=== PATIENT | male | born 1995 | race Caucasian/White ===

== ENCOUNTER 2017-07-30 10:00 | Day surgery (SDC) | payer OTHER ==
[~2017-07-30 10:00] MED LIST: Lactated Ringers 1,000 ML IV SCH; Midazolam 1 MG/ML 2 ML SDV ONE; Ondansetron 4 MG/2 ML SDV ONE; Propofol 200 MG/20 ML SDV ONE; ceFAZolin 2 GM in Premix Bag 1 BAG IV ONE; fentaNYL 100 MCG/2 ML SDV ONE
--- NOTE | 2017-07-30 10:52 | PCM.PREANE ---
Preanesthetic Assessment - Anesthesia/Transfusion/Family Hx Anesthesia History: No Prior Anesthesia Family History of Anesthesia Reaction: No Transfusion History: No Prior Transfusion(s) Intubation History: Unknown - Review of Systems General: No Symptoms Pulmonary: No Symptoms Cardiovascular: No Symptoms Gastrointestinal: No Symptoms Neurological: No Symptoms Other: Reports: None - Physical Assessment O2 Sat by Pulse Oximetry: 98 Respiratory Rate: 16 Vital Signs: Last Vital Signs Temp 36.4 C 07/30/17 10:32 Pulse 61 07/30/17 10:32 Resp 16 07/30/17 10:32 BP 140/71 07/30/17 10:32 Pulse Ox 98 07/30/17 10:32 Height: 1.88 m Weight: 115.666 kg ASA Class: 2 Mental Status: Alert & Oriented x3 Airway Class: Mallampati = 2 Dentition: Reports: Normal Dentition, Broken Tooth/Teeth (small chip x1 upper front (right)) ROM/Head Extension: Full Lungs: Clear to Auscultation, Normal Respiratory Effort Cardiovascular: Regular Rate, Regular Rhythm - Allergies Allergies/Adverse Reactions: Allergies Allergy/AdvReac Type Severity Reaction Status Date / Time No Known Allergies Allergy Verified 07/26/17 14:11 - Blood Blood Available: No - Anesthesia Plan Pre-Op Medication Ordered: None - Acknowledgements Anesthesia Type Planned: General Anesthesia Pt an Appropriate Candidate for the Planned Anesthesia: Yes Alternatives and Risks of Anesthesia Discussed w Pt/Guardian: Yes Pt/Guardian Understands and Agrees with Anesthesia Plan: Yes PreAnesthesia Questionnaire Musculoskeletal History: Reports: Fracture Other Musculoskeletal History: hx of fx clavicle,left foot,hand,arm, elbow, bilateral heels, leg...no hardware Neurological History: Reports: Concussion Psychiatric History: Reports: Depression Other Psychiatric History: has been prescribed medications for depression but he never takes them Endocrine/Metabolic History: Reports: Obesity/BMI 30+ - SUBSTANCE USE Smoking Status *Q: Current Every Day Smoker (1/2 ppd) Tobacco Use Within Last Twelve Months: Cigarettes Recreational Drug Use History: No - HOME MEDS Home Medications: Home Meds . [No Known Home Meds] 07/26/17 [History] - CURRENT (IN HOUSE) MEDS Current Meds: Current Medications Lactated Ringer's (Ringers, Lactated) 1,000 mls @ 999 mls/hr IV .BOLUS JUNE Last Admin: 07/30/17 10:35 Dose: 125 mls/hr Discontinued Medications Fentanyl (Sublimaze) Confirm Administered Dose 200 mcg .ROUTE .STK-MED ONE Stop: 07/30/17 08:37 Cefazolin Sodium/Dextrose 2 gm (/ Premix) 50 mls @ 100 mls/hr IV ONETIME ONE Stop: 07/29/17 18:18 Midazolam HCl (Versed 1 Mg/Ml) Confirm Administered Dose 2 mg .ROUTE .STK-MED ONE Stop: 07/30/17 08:37 Ondansetron HCl (Zofran) Confirm Administered Dose 4 mg .ROUTE .STK-MED ONE Stop: 07/30/17 08:37 Propofol (Diprivan 20 Ml) Confirm Administered Dose 200 mg .ROUTE .STK-MED ONE Stop: 07/30/17 08:37
[2017-07-30] MEDS ORDERED: Bupivacaine 0.5% 30 ML SDV ONE (11:48)
[2017-07-30] MEDS ORDERED: Dexamethasone 4 MG/ML 5 ML MDV ONE (11:56)
[2017-07-30] MEDS ORDERED: diphenhydrAMINE 50 MG/ML SDV ONE (11:56)
[2017-07-30] MEDS ORDERED: HYDROmorphone 2 MG/ML Syringe ONE (12:18)
[2017-07-30] MEDS ORDERED: HYDROmorphone 2 MG/ML Syringe IVPUSH ONE (14:30)
[2017-07-30] MEDS ORDERED: fentaNYL 100 MCG/2 ML SDV IVPUSH PRN (14:30)
[2017-07-30] MEDS ORDERED: Acetaminophen 1,000 MG in Premix Bag 1 BAG IV ONE (15:23)
--- NOTE | 2017-07-30 15:28 | PCM.POSTAN ---
POST ANESTHESIA ASSESSMENT - MENTAL STATUS Mental Status: Alert, Oriented - VITAL SIGNS Pulse Rate: 86 SaO2: 95 (Room Air) Resp Rate: 14 Blood Pressure: 141/73 - RESPIRATORY Respiratory Status: Respiratory Rate WNL, Airway Patent, O2 Saturation Stable - CARDIOVASCULAR CV Status: Pulse Rate WNL, Blood Pressure Stable - GASTROINTESTINAL GI Status: No Symptoms - PAIN Pain Score: 2 (mostly itchy) - POST OP HYDRATION Hydration Status: Adequate & Stable - OBSERVATIONS Free Text/Narrative:: Awake and talking Orienting but responding verbal to verbal warm pink and dry vitals in stable limits says not much paini but mostly i to phase 2 plan non narcotic intervention for pqain if neededtchy discharging from recovery room
--- NOTE | 2017-07-30 16:16 | CR ---
EXAMINATION: Left foot HISTORY: ORIF COMPARISON: 06/21/2017 TECHNIQUE: 5 views FINDINGS/IMPRESSION: Operative control films demonstrate screw and plate fixation of an oblique proxi mal fifth metatarsal fracture.
--- NOTE | 2017-07-30 16:35 | PCM.OPNOTE ---
- General Post-Op/Procedure Note Date of Surgery/Procedure: 07/30/17 Operative Procedure(s): open reduction with internal fixation of fifth metatarsal fracture right foot Findings: consistent with diagnosis Pre Op Diagnosis: fracture of fifth metatarsal right foot Post-Op Diagnosis: fracture of fifth metatarsal right foot Primary Surgeon: Jose Guadalupe Cha Anesthesia Provider: Tressa Conteh Pathology: none EBL in mLs: 10 Condition: Good Free Text/Narrative:: Intake & Output 07/30/17 07/30/17 07/30/17 06:59 14:59 22:59 Intake Total 1800 Balance 1800 injectables: 10 cc 0.5% marcaine plain materials: [place] plate, 4 hole, 28 mm, x1 Sara 3.0 mm non-locking screws, fully threaded, 14 mm x 1, 16 mm x 1 [place] 3.0 mm locking screw, fully threaded, 16 mm x 1, 18 mm x 1 3-0 vicryl 4-0 vicryl 4-0 prolene
--- NOTE | 2017-07-30 16:50 | PCM48HPAN ---
Post Anesthesia Note - EVALUATION WITHIN 48HRS OF ANESTHETIC Vital Signs in Normal Range: Yes Patient Participated in Evaluation: Yes Respiratory Function Stable: Yes Airway Patent: Yes Cardiovascular Function Stable: Yes Hydration Status Stable: Yes Pain Control Satisfactory: Yes Nausea and Vomiting Control Satisfactory: Yes Mental Status Recovered: Yes - COMMENTS/OBSERVATIONS Free Text/Narrative:: Patient up and dressed and states he wants to go home.
--- NOTE | 2017-07-31 00:20 | OR ---
SURGEON: Jose Guadalupe Cha DPM DATE OF PROCEDURE: 07/30/2017 PREOPERATIVE DIAGNOSIS: Displaced fracture of the fifth metatarsal of the right foot. POSTOPERATIVE DIAGNOSIS: Displaced fracture of the fifth metatarsal of the right foot. PROCEDURES PERFORMED: Open reduction with internal fixation of fifth metatarsal fracture of the right foot. ANESTHESIA: General. HEMOSTASIS: An above-ankle pneumatic tourniquet inflated to a pressure of 250 mmHg following an Esmarch bandage exsanguination of the right lower extremity. ESTIMATED BLOOD LOSS: 10 mL. PATHOLOGY: None. MATERIALS: 1. [place] plate system, 4-hole utility plate measuring 28 mm in length. 2. Sara 3.0 mm locking screw fully threaded with one screw measuring 16 mm in length and one screw measuring 18 mm in length. 3. [place] 3.0 mm nonlocking screw fully threaded, one measuring 14 mm in length and one measuring 16 mm in length. INJECTABLES: 10 mL of 0.5% Marcaine plain. CONDITION: The patient tolerated the procedure and the anesthesia well without any complications noted or reported. JUSTIFICATION FOR PROCEDURE: The patient, Mr. Hoff, is a 22-year-old male who suffered a fracture of the fifth metatarsal of the right foot. He was subsequently referred to me. The fracture was mildly displaced. I did note some concern for gapping wound, mostly at the fracture, particularly from the lateral aspect on x-ray. The patient and I discussed conservative and surgical treatment options. The patient due to his work commitments was under the strong opinion that he could not risk the possibility of needing to go to surgery after 4-6 weeks of conservative treatment, which I was unable to rule out as a possibility. Instead, the patient elects for surgery without deliberate speed and has been cleared for surgery, and agrees to surgery today. The patient has maintained nonweightbearing until now since his visit approximately 4 weeks ago in my office. He was told of the benefits as well as possible side effects of surgery with all questions answered, and did consent for surgical correction. The patient's consent form was witnessed and signed by the patient and placed in the chart, and I also signed the patient's consent form. DESCRIPTION OF PROCEDURE: The patient was identified by his name, brought to the operating room, and placed on the operating table in a supine position at which time, an aseptic scrub and drape was performed about the patient's right lower extremity. After general anesthesia had been induced as described above, the right above-ankle tourniquet was inflated to a pressure of 250 mmHg after an Esmarch bandage exsanguination of the right foot and after using a marking pen to plan the incision. Attention was directed to the dorsolateral aspect of the patient's right foot where procedure #1 commenced. Procedure is open reduction with internal fixation of fifth metatarsal fracture of the right foot. A dorsolateral linear incision was placed over the shaft of the fifth metatarsal running from the base of the fifth metatarsal and extending approximately two- thirds of the way down the shaft of the fifth metatarsal. All small neurovascular structures traversing the incision site were either cut, clamped, ligated, and/or retracted away. Incision was then deepened in the same plane ensuring that all the larger neurovascular structures, tendons, and muscle bellies were retracted from the incision site and preserved. The fracture site was identified as an oblique proximal dorsal to plantar distal direction of the fracture, and the bone appeared minimally displaced. The fracture line was probed and determined to be free of any foreign material that could impede healing of bone and was judged to be fit to be fixed in that position. The Sara utility plate with 4 holes, 2 proximal and 2 distal, was selected and was placed over the bone with the fracture in the midportion plantar to the plate to get an idea of fit. Plate benders were utilized to fashion the plate to more approximately fit the dorsolateral aspect of the bone of the fifth metatarsal as needed. The plate was fixed with an [place] wire temporarily and was later shifted slightly distally. Four holes were drilled and screws placed after measuring for 4 screws for a combination of 2 locking and 2 nonlocking. Each side received one of each type of screw. All screws were placed with excellent purchase noted, particularly with the nonlocking screws, although the locking screws were also achieving good purchase and then locked into place once they reached the plate with the thread. The proximal-most and distal-most screws were essentially replaced with slightly longer screws to best fixate the fracture. Good reduction and alignment were noted, and the entire area was flushed with copious amounts of normal sterile saline and judged to be ready for closure. Closure was performed with a combination of deep tissue closed with a 3-0 Vicryl suture, subcutaneous level with 4-0 Vicryl suture, and the superficial skin was reapproximated with 4-0 Prolene suture. 10 mL of 0.5% Marcaine plain was injected about the surgical site, and Betadine-soaked Xeroform gauze followed by fluff gauze, Kerlix roll, and posterior splint secured with Froy bandages were all applied. Prior to application of the splint, the tourniquet was deflated. Prompt hyperemic response was noted to all digits of the right foot. The patient tolerated the procedure and the anesthesia well with no complications noted with all vital signs stable and after a brief stay in the recovery room, the patient was prepared for discharge home with adequate analgesic medication for at-home use. The patient has also been provided with verbal and written orders and is to maintain strict nonweightbearing to the right lower extremity. The patient will be followed up in my office next week and has my cellphone number should any questions arise. SHAWNA / VICTORIA /[id number] CHANTEL
== END 2017-07-30 17:00 | disposition home or self-care (01) ==
LOC: MW.SDS 10:00
PROVIDERS: ATTEND Podiatrist Foot & Ankle Surgery
DX: S92.351A Displaced fracture of fifth metatarsal bone, right foot, initial encounter for closed fracture (principal); F17.210 Nicotine dependence, cigarettes, uncomplicated; X58.XXXA Exposure to other specified factors, initial encounter
CPT/HCPCS: 28485; 76001; J1100; J1170; J1200; J2250; J2405; J3010; J7120; 01480; C1713; J2704